=== PATIENT | female | born 1980 | race Caucasian/White ===

== ENCOUNTER → 2024-08-12 11:24 | Outpatient (REF) | payer BC, SELFPAY | LOC: HWWDC 11:24 | PROVIDERS: ATTENDING PHYSICIAN Obstetrics & Gynecology; FAMILY PHYSICIAN Nurse Practitioner Adult Health | DX: Z12.31 Encounter for screening mammogram for malignant neoplasm of breast (principal) | CPT/HCPCS: 77063; 77067 ==

== ENCOUNTER 2024-12-20 17:45 | Emergency (ER) | payer BC, SELFPAY ==
[2024-12-20 17:55] VITALS: BP 144/95
[2024-12-20 17:56] LABS: Glucose - Point of Care 325 mg/dl (70-99)
[2024-12-20 18:09] LABS: % Basophils 0.9 % (0-2); % Eosinophils 2.4 % (0-6); % Immature Granulocytes 0.3 % (0-0.5); % Lymphocytes 43.5 % (20.5-51.1); % Monocytes 9.2 % (1.7-9.3); % Neutrophils 43.7 % (42.2-75.2); Absolute Basophils 0.1 10^3/uL (0-0.2); Absolute Eosinophils 0.2 10^3/uL (0-0.7); Absolute Lymphocytes 3.8 10^3/uL (1.2-3.4); Absolute Monocytes 0.8 10^3/uL (0.1-0.6); Absolute Neutrophils 3.9 10^3/uL (1.4-6.5); Hematocrit 44.4 % (37.0-47.0); Hemoglobin 15.3 g/dL (12.0-16.0); Mean Corp Hgb Conc. 34.5 g/dL (33.0-37.0); Mean Corpuscular Hgb 30.4 pg (27.0-31.0); Mean Corpuscular Volume 88.3 fL (81.0-99.0); Mean Platelet Volume 10.8 fL (7.4-10.4); Nucleated Red Blood Cells % 0 %; Platelet Count 250 10^3/uL (130-400); Red Blood Cell Count 5.03 10^6/uL (4.20-5.40); Red Cell Dist. Width 12.2 % (11.5-14.5); White Blood Cell Count 8.8 10^3/uL (4.8-10.8)
[2024-12-20 18:26] LABS: ALT (SGPT) 274 U/L (0-35); AST (SGOT) 141 U/L (14-36); Albumin 4.8 g/dl (3.5-5.0); Alkaline Phosphatase 107 U/L (38-126); Blood Urea Nitrogen 17 mg/dl (7-17); Carbon Dioxide 27 mmol/L (22-30); Chloride 99 mmol/L (98-107); Glucose 326 mg/dl (70-99); Potassium 4.7 mmol/L (3.5-5.1); Sodium 136 mmol/L (135-145); Total Bilirubin 0.7 mg/dl (0.2-1.3); Total Protein 7.1 g/dl (6.3-8.2); eGFR > 60.00
[2024-12-20 18:32] LABS: B-Hydroxybutyrate 0.39 mmol/L (0.02-0.27)
[2024-12-20 21:24] VITALS: BP 139/98
[2024-12-20 21:25] VITALS: BMI 33.3
[2024-12-20 22:00] VITALS: BP 138/92
[2024-12-20 23:00] VITALS: BP 119/72
--- NOTE | 2024-12-20 23:40 | ED.GENMED ---
History of Present Illness
General
Chief Complaint: Blood Sugar Problem
Source: patient
Exam Limitations: none
Time Seen by Provider: 12/20/24 21:58
Nursing documentation reviewed up to this point in time: agreed with
History of Present Illness
History of Present Illness:
Patient with history of depression on Lexapro, presents to ED secondary to elevated blood sugar. Patient states that for the past 1 month, she has experienced increased thirst as well as blurred vision. Patient was evaluated by her eye doctor who
changed her prescription with improvement. However, given her symptoms, recommended that she follow-up with her family doctor for reevaluation. She was evaluated by her primary care physician and had blood work ordered last week, which revealed
increased blood sugar. Patient has an appointment with to see her primary care physician in 2 days, to discuss treatment plan. In the meantime, she has been feeling fatigued and weak over the past 48 hours. When she checked her blood sugar at
home today, it was noted to be high, prompting her visit to ED. Denies vomiting or diarrhea. Denies abdominal pain. Denies headache. Denies fever or chills. Denies recent illness. Denies recent change in medications or diet. There is family
history of family history of diabetes.
Past History
Past History
ED Past Medical History: None
ED Past Surgical History: None
Social History
Tobacco: Non-smoker
Review of Systems
Review of Systems
Allergies reviewed?: Yes
All Other Systems: ROS reviewed and negative except as documented in HPI and ROS
Constitutional: Reports no symptoms; Denies fever
Respiratory: Reports no symptoms
Cardiac: Reports no symptoms
ABD/GI: Reports no symptoms; Denies abdominal pain or vomiting
: Reports no symptoms
Musculoskeletal: Reports no symptoms
Skin: Reports no symptoms
Neurological: Reports no symptoms
Endocrine: Reports polydipsia
Phy Exam
Physical Exam
Physical Exam:
Physical Exam
General: no apparent distress, not acutely ill. afebrile
Head: nc/at. eomi
Neck: supple. no meningeal signs
Heart: s1/s2 regular rate and rhythm
Lungs: no acute respiratory distress. clear bilaterally
Abdomen: normal bowel sounds. not tender.
Neuro: alert and oriented x 3. no focal neurological deficits
Skin: no rash
Psychiatric: well kept. interactive and cooperative
Extremities: no edema. no calf tenderness.
Course
Orders/Labs/Results
Orders:
Orders
12/20/24 18:03
B-Hydroxybutyrate Urgent
Complete Blood Count/With Diff Urgent
Comprehensive Metabolic Panel Urgent
Glycohemoglobin (HgbA1c) Urgent
12/20/24 23:39
Add On- LAB Urgent
Tests Added?: Hemoglobin A1c
METFORMIN HCl [Glucophage] 500 mg PO NOW STA
Abnormal Lab Results
12/20/24 12/20/24
17:54 18:03
MPV 10.8 H fL
(7.4-10.4)
Absolute Lymphs (auto) 3.8 H 10^3/uL
(1.2-3.4)
Absolute Monos (auto) 0.8 H 10^3/uL
(0.1-0.6)
Glucose 326 H mg/dl
(70-99)
AST 141 H U/L
(14-36)
ALT 274 H U/L
(0-35)
B-Hydroxybutyrate 0.39 H mmol/L
(0.02-0.27)
POC Glucose 325 H mg/dl
(70-99)
12/20/24 18:03
12/20/24 18:03
Vital Signs
Initial and Last Documented VS:
Initial Vital Signs
Temp Pulse Resp BP Pulse Ox
98.8 F 62 16 144/95 98
12/20/24 17:55 12/20/24 17:55 12/20/24 17:55 12/20/24 17:55 12/20/24 17:55
Last Documented Vital Signs
Temp Pulse Resp BP Pulse Ox
98.8 F 62 16 119/72 94
12/20/24 17:55 12/20/24 17:55 12/20/24 17:55 12/20/24 23:00 12/20/24 23:45
MDM/Problems Addressed
MDM/Problems Addressed:
History, exam, and blood work consistent with likely new onset diabetes. Fortunately, patient is afebrile, helically stable, nontoxic-appearing. Blood work does not reveal anion gap.
Hemoglobin A1c pending.
After discussion, patient will be started on metformin this evening, and will follow-up with her PCP on Friday for reevaluation.
*Critical Care Note
Total Time (30-74mins, 75-104mins- exclusive of procedures): Not Applicable
ED Attending Note
-
Portions of this chart may have been created with voice recognition software.� Occasional wrong word or��sound alike� substitutions may have occurred due to the inherent limitations of voice recognition software.
Discharge Plan
Departure
Patient Disposition: Home (Routine Discharge)
Date of Disposition: 12/20/24
Time of Disposition: 23:40
Patient with high blood pressure during this ER visit?: Yes
Condition: Fair
Discharge Problem:
Hyperglycemia
Instructions: High blood sugar in adults - ED discharge instructions
Prescriptions:
New
metformin 500 mg tablet
500 mg PO BID Qty: 30 0RF
No Action
amoxicillin-pot clavulanate 1 TABLET tablet
1 tab PO Q12 Qty: 14 0RF
Referrals:
Belia Yañez CRNP [Family Provider, General]
Activity Restrictions/Additional Instructions:
As discussed, please follow-up with your primary care physician on Friday, as scheduled, for further evaluation and treatment. Your prescription has been sent electronically to [facility] pharmacy in [place].
Interventions
Interventions:
*Risk Screen - Suicide Last Done: 12/20/24 17:55
*General Assessment Last Done: 12/20/24 17:55
*Neglect/Abuse Screening Last Done: 12/20/24 17:55
*ED- Fall Risk Assessment Last Done: 12/20/24 17:55
*ED COVID-19 Vaccine History Last Done: 12/20/24 17:55
*Nursing Disposition Last Done: 12/21/24 00:35
ED- Neurological Assessment Last Done: 12/20/24 21:29
Discharge Date and Time
Discharge Date/Time: 12/21/24 00:36
Print Language: NICARAGU[place]
[2024-12-20] MEDS: GLUCOPHAGE 500 MG PO (23:56)
[2024-12-21 08:47] LABS: Glycohemoglobin (HgbA1c) 11.8 % (4.0-5.6)
== END 2024-12-21 00:36 | disposition home or self-care (01) ==
LOC: EMR 17:45
PROVIDERS: Emergency Medicine; EMERGENCY PHYSICIAN Emergency Medicine; FAMILY PHYSICIAN Nurse Practitioner Adult Health
DX: R73.9 Hyperglycemia, unspecified (principal); Z83.3 Family history of diabetes mellitus
CPT/HCPCS: 99283; 80053; 82010; 82962; 83036; 85025

== ENCOUNTER → 2025-01-06 07:48 | Outpatient (REF) | payer BC, SELFPAY | LOC: RAD 07:48 | PROVIDERS: ATTENDING PHYSICIAN Nurse Practitioner Adult Health | DX: R74.01 Elevation of levels of liver transaminase levels (principal) | CPT/HCPCS: 76705 ==